=== PATIENT | male | born 1940 | race Caucasian/White ===

== ENCOUNTER 2024-11-02 14:03 | Emergency (ER) | payer MEDICARE ==
[~2024-11-02] VITALS: Ht 177.8 cm; Wt 107.9 kg
[~2024-11-02 14:03] MED LIST: DOXY-224 PO
[2024-11-02 14:23] VITALS: BP 135/84; PULSE 63; RESP 18; O2SAT 97
[2024-11-02 16:05] LABS: BASOPHILS # (AUTO) 0.1 X10'3 (0-0.2); BASOPHILS % (AUTO) 0.5 % (0-1); EOSINOPHILS # (AUTO) 0.5 X10'3 (0-0.9); EOSINOPHILS % (AUTO) 5.3 % (0-6); HEMATOCRIT 40.6 % (42.0-52.0); HEMOGLOBIN 13.8 g/dl (14.0-17.9); LYMPHOCYTES # (AUTO) 2.3 X10'3 (1.1-4.8); MEAN CORPUSCULAR VOLUME 94.2 FL (78-98); MEAN PLATELET VOLUME 8.1 FL (7.4-10.4); MONOCYTES % (AUTO) 10.5 % (2-12); NEUTROPHILS # (AUTO) 5.7 X10'3 (1.8-7.7); NEUTROPHILS % (AUTO) 59.7 % (42-75); PLATELET COUNT 262 X10'3 (140-440); RED BLOOD COUNT 4.31 X10'6 (4.70-6.10); RED CELL DISTRIBUTION WIDTH 13.1 % (11.5-14.5); WHITE BLOOD COUNT 9.6 X10'3 (4.5-11.0)
[2024-11-02 16:29] LABS: APTT 29 SECONDS (22-32); PROTHROMBIN TIME 10.9 SECONDS (9.0-12.0)
[2024-11-02 16:34] LABS: ALANINE AMINOTRANSFERASE 23 U/L (12-78); ALBUMIN 3.6 G/DL (3.4-5.0); ALKALINE PHOSPHATASE 77 IU/L (46-116); ANION GAP 9 (8-16); ASPARTATE AMINO TRANSFERASE 26 U/L (10-37); BILIRUBIN,TOTAL 2.2 MG/DL (0.1-1.0); BLOOD UREA NITROGEN 14 MG/DL (7-18); BUN/CREATININE RATIO 18.7 (10.0-20.0); CHLORIDE 101 MMOL/L (99-107); CREATININE 0.75 MG/DL (0.60-1.10); GLUCOSE 99 MG/DL (70-104); POTASSIUM 3.7 MMOL/L (3.5-5.1); SODIUM 136 MMOL/L (135-145); TOTAL CARBON DIOXIDE 26.5 MMOL/L (24-32); TOTAL PROTEIN 7.2 G/DL (6.4-8.2); eCRCL 78 ML/MIN; eGFR > 90 ML/MIN
[2024-11-02] MEDS ORDERED: LIDOcaine 1% 30ml preserv. free vial IJ STA (16:48)
[2024-11-02] MEDS ORDERED: methylPREDNISolone acetate 80mg/ml inj**IM only IM ONE (16:50)
[2024-11-02] MEDS ORDERED: methylPREDNISolone acetate 80mg/ml inj**IM only IJ ONE (17:00)
[2024-11-02 18:21] VITALS: TEMP 98.4
== END 2024-11-02 18:23 | disposition home or self-care (01) ==
LOC: ER 14:04
DX: I65.23 Occlusion and stenosis of bilateral carotid arteries (principal); Z88.2 Allergy status to sulfonamides; Z88.8 Allergy status to other drugs, medicaments and biological substances
CPT/HCPCS: 36415; 80053; 85025; 85610; 85730; 93005; 93880; 99284

== ENCOUNTER 2025-07-09 06:36 | Day surgery (SDC) | payer MEDICARE ==
[2025-07-09] VITALS (10 sets, daily range): BP systolic 140–172; BP diastolic 72–86; PULSE 55–63; RESP 14–16; TEMP 97.9; O2SAT 94–97
[~2025-07-09] VITALS: Ht 177.8 cm; Wt 104.1 kg
--- NOTE | 2025-07-09 07:19 | ELECTROCARDIOGRAPH REPORT ---
[facility] Test Date: 2025-07-09 Test Time: 07:16:01 Pat Name: ALANA PINA Department: [facility] Patient ID: [id number] Room: Gender: M [employer] Operator: SEAN : 1940 Requested By: SUSAN PARISH Order Number: [id number] Reading MD: Dr. Carey Silver Measurements Intervals [place] Rate: 57 P: 34 MI: 152 QRS: 8 QRSD: 114 T: 99 QT: 440 QTc: 429 Interpretive Statements Sinus rhythm Left ventricular hypertrophy Borderline T abnormalities, lateral leads ST elevation, consider anterior injury Electronically Signed On 07-10-2025 6:59:[address] Carey Silver Please click the below link to view image of tracing.
[2025-07-09 07:23] LABS: MEAN PLATELET VOLUME 7.9 FL (7.4-10.4); RED CELL DISTRIBUTION WIDTH 13.0 % (11.5-14.5)
[2025-07-09 07:31] LABS: CREATININE 0.77 MG/DL (0.60-1.10); TOTAL CARBON DIOXIDE 28.4 MMOL/L (24-32); eCRCL 76 ML/MIN; eGFR > 90 ML/MIN
[2025-07-09 07:33] LABS: INR 1.0 INR
[2025-07-09] MEDS ORDERED: MULT-1085 PO (07:48)
[2025-07-09] MEDS ORDERED: [UNRECOGNIZED DRUG - OTHER] (07:48)
[2025-07-09] MEDS ORDERED: CHOL10CA2 PO (07:48)
[2025-07-09] MEDS ORDERED: [UNRECOGNIZED DRUG - OTHER] (07:48)
[2025-07-09] MEDS ORDERED: [UNRECOGNIZED DRUG - OTHER] (07:48)
[2025-07-09] MEDS ORDERED: OMEG1CAP61 PO (07:48)
[2025-07-09] MEDS ORDERED: CALC300T4 PO (07:48)
[2025-07-09] MEDS: sodium bicarbonate 1meq/ml syr 150 ML in dextrose 5%-water 1,000 ML IV ONE (07:56)
[2025-07-09] MEDS ORDERED: LIDOcaine 1% (10mg/ml) 2ml vial ONE (08:58)
[2025-07-09] MEDS ORDERED: midazolam 1 mg/ML 2ml injection ONE ×2 (08:58→09:17)
[2025-07-09] MEDS ORDERED: fentaNYL/PF 50MCG/1 ML 2ML syringe ONE (08:58)
[2025-07-09] MEDS ORDERED: iohexol 350 MG/ML 50ML vial IV ONE (08:59)
[2025-07-09] MEDS ORDERED: verapamil 2.5 mg/ml inj IV ONE (08:59)
[2025-07-09] MEDS ORDERED: heparin 1,000unit/ml 10ml vial 10 ML ONE (08:59)
[2025-07-09] MEDS ORDERED: nitroGLYCERIN 500mcg/5mL D5W 5 ML IV ONE (09:00)
[2025-07-09] MEDS ORDERED: LIDOcaine 1% 30ml preserv. free vial ONE (09:17)
[2025-07-09] MEDS ORDERED: LIDOcaine 1% W/epiNEPHrine 1:100,000 20ml vial ONE (10:42)
--- NOTE | 2025-07-09 11:34 | CARDIOLOGY REPORT ---
DATE OF SERVICE: 07/09/2025 DICTATING PHYSICIAN: SUSAN PARISH DO CARDIAC CATHETERIZATION REPORT DATE OF SERVICE: 07/09/2025 REFERRING PHYSICIAN: Jona Haile MD CLINICAL HISTORY: This 84-year-old man has known severe aortic stenosis and is being considered for TAVR. He has had a pharmacologic stress test showing multiple areas of inadequate perfusion; however, he is not currently experiencing chest pain. He has also had carotid ultrasonography with findings of at least moderate stenoses in both internal carotid arteries. PROCEDURES PERFORMED: * Right heart catheterization. * Left heart catheterization. * Left ventriculography. * Selective coronary arteriography. * Selective opacification of the left and right carotid arteries. * Percutaneous arteriotomy closure (Perclose). * 60 minutes of conscious sedation supervision. DESCRIPTION OF THE PROCEDURE: The patient was sedated with fentanyl and Versed. He was then prepared and draped in the usual manner. The right inguinal area was infiltrated with 1% lidocaine. Using a Seldinger technique, a 6-[place] sheath was placed in the common femoral vein and a 7-[place]izen [place] sheath was placed in the common femoral artery. 3000 units of heparin were then given. Right heart catheterization was performed using a 6-[place] Zoe-Theodora catheter. Cardiac output was determined using a thermodilution technique. Left heart catheterization and left ventriculography were performed using a 6-[place] double lumen [place] catheter. Simultaneous recordings were obtained in both the aorta and left ventricle. Coronary arteriography was performed using 6-[place]izen [place] #4 left and right Naveed catheters. Bilateral selective carotid arteriography was performed using the #4 right Naveed catheter. The arterial puncture site was successfully perclosed. Direct pressure was applied to the venous access site. RESULTS: HEMODYNAMIC DATA: The mean right atrial pressure was 13 mmHg. Right ventricular pressure was 46/18 mmHg. Mean pulmonary capillary wedge pressure was 23 mmHg. Pulmonary arterial pressure was 42/18 mmHg. Left ventricular end diastolic pressure was 23 mmHg. There was a 50 mm peak gradient across the aortic valve. The cardiac outputs were 4.5, 4.6, and 4.8 L/min. Using the cardiac outputs and the short-form calculation, the aortic valve area was estimated at 0.65 cm2. LEFT VENTRICULOGRAM: The left ventriculogram was technically satisfactory. There was marked calcification of the aortic valve. The ejection fraction was estimated at 60-65%. There was calcification proximally within the left coronary artery. CORONARY ARTERIOGRAPHY: The coronary arteriograms were technically satisfactory. The patient had a codominant system. LEFT MAIN CORONARY ARTERY: The left main was a large vessel bifurcating into left anterior descending and circumflex coronary arteries. The distal left main appeared to be narrowed by 40% to 50%. LEFT ANTERIOR DESCENDING CORONARY ARTERY: The LAD was a medium-sized main stem vessel. There was a tiny very proximal first diagonal, a medium-sized bifurcated second diagonal, which also took its origin proximally. There were 3 additional diagonal branches taking the origin from the mid and distal LAD. There were no obstructive lesions in any of the diagonal branches, but there was an approximate 50% stenosis in 2 locations within the distal LAD. CIRCUMFLEX CORONARY ARTERY: The circumflex was a large main stem vessel. There was a medium-sized first posterolateral branch and a small to medium-sized second posterolateral branch. The origin of the first posterolateral branch contained a long 90% stenosis and the origin of the second posterolateral was narrowed by about 80% to 90% stenosis at its origin. RIGHT CORONARY ARTERY: The right coronary is a small caliber vessel giving off only a posterior descending branch. Proximally and in the mid vessel, there were 90% and two 50% to 70% areas of stenosis. The posterior descending branch was a small caliber vessel wide moderate luminal irregularities. CAROTID ANGIOGRAPHY. The left common carotid was free of obstructive disease except for at the origin of the internal carotid where there was no more than and probably less than a 50% area of narrowing. The right common carotid was free of obstructive disease. As seen in 2 views, the proximal internal carotid appeared to be narrowed by at least 80%. CONCLUSIONS: 1. [id number] pulmonary hypertension. Pulmonary arterial pressure was 42/18 mmHg. 2. Cardiac output by thermodilution technique was easily reproducible and an average of 3 recordings was 4.63 L/min. 3. There was a 50 mm peak gradient across the aortic valve. The calculated aortic valve area was 0.65 cm2. 4. Left ventricular systolic function appeared to be normal. The estimated ejection fraction was 60% to 65%. 5. Obstructive coronary disease as follows: a. Two 50% areas of narrowing in the far distal right coronary and a very small caliber segment of the terminal mainstem left anterior descending. b. 90% first posterolateral and 80% to 90% narrowing at the origin of the second posterolateral. This is a bifurcation stenosis. There was also 50% to 70% proximal and two 50% areas of narrowing in the main stem right coronary. 6. Individual selective angiography of both internal carotid arteries revealed no more than a 50% smooth-appearing narrowing in the LEFT internal carotid but, as seen in 2 views, there is an estimated 70% to 80% stenosis near the origin of the RIGHT internal carotid artery. RECOMMENDATIONS: 1. Ongoing medical therapy. I think this patient could go through with his TAVR with his current CAD and have PCI after. 2. Consideration of RIGHT ICA CEA after the aortic valve is addressed, SUSAN PARISH DO TID: [id number] RECEIPT: [id number] GEN PRICE
[2025-07-09] MEDS ORDERED: OXAZEpam 15mg capsule PO PRN (11:40)
[2025-07-09] MEDS ORDERED: HYDROcodone/acetaminophen 10/325mg tab PO PRN (11:40)
[2025-07-09] MEDS ORDERED: HYDROcodone/acetaminophen 5mg/325mg tablet PO PRN (11:40)
[2025-07-09] MEDS ORDERED: ondansetron/PF 4mg/2ml inj IV PRN (11:40)
[2025-07-09] MEDS ORDERED: sodium bicarbonate 1meq/ml syr 150 ML in dextrose 5%-water 1,000 ML IV ONE (11:40)
== END 2025-07-09 13:55 | disposition home or self-care (01) ==
LOC: SSTAY O 06:36
PROVIDERS: ATTEND Internal Medicine Cardiovascular Disease
DX: I35.0 Nonrheumatic aortic (valve) stenosis (principal); I25.10 Atherosclerotic heart disease of native coronary artery without angina pectoris; I65.23 Occlusion and stenosis of bilateral carotid arteries; I10 Essential (primary) hypertension; E78.5 Hyperlipidemia, unspecified; Z86.73 Personal history of transient ischemic attack (TIA), and cerebral infarction without residual deficits
CPT/HCPCS: 36415; 80048; 83735; 85025; 85610; 93005; 93460; 99152; 99153; A6258; A6402; C1725; C1751; C1760; C1769; C1894; J1644; J2003; J2250; J3010; J3490; J7030; J7070; Q0163; Q9967; Z7610; 36222; 36223; A6449

== ENCOUNTER 2025-08-21 09:13 | Outpatient (CLI) | payer MEDICARE ==
[~2025-08-21 09:13] MED LIST changes: +CALC300T4 PO; +CHOL10CA2 PO; -DOXY-224 PO; +IODIXANOL 320 MG/ML INFUS..BTL 100ML IV ONE; +MULT-1085 PO; +OMEG1CAP61 PO; +[UNRECOGNIZED DRUG - OTHER]; +[UNRECOGNIZED DRUG - OTHER]; +[UNRECOGNIZED DRUG - OTHER]
[2025-08-21 09:44] LABS: MEAN PLATELET VOLUME 7.5 FL (7.4-10.4); RED CELL DISTRIBUTION WIDTH 12.9 % (11.5-14.5)
[2025-08-21 09:56] LABS: APTT 29 SECONDS (22-32); INR 1.0 INR
--- NOTE | 2025-08-21 10:01 | RADIOLOGY REPORT ---
CHEST RADIOGRAPH Indication: TAVR; SOB Technique: Frontal and lateral view of the chest was obtained Comparison: None FINDINGS: Lines and Tubes: None Lungs: Increased interstitial prominence. This may represent pulmonary vascular congestion and/or viral pneumonia. Pleura: No effusion.No pneumothorax. Cardiomediastinal contours: Post TAVR. Borderline cardiomegaly. Bones: Unremarkable IMPRESSION: Increased interstitial prominence. This may represent pulmonary vascular congestion and/or viral pneumonia.
[2025-08-21 10:12] LABS: CREATININE 0.79 MG/DL (0.60-1.10); PRO BRAIN NATRIURETIC PEPTIDE 547 PG/ML (0-450); TOTAL CARBON DIOXIDE 28.5 MMOL/L (24-32); eGFR > 90 ML/MIN
--- NOTE | 2025-08-22 17:15 | CARDIOLOGY REPORT ---
APPROVED REPORT EXAM: Limited 2D, Doppler, and color-flow Echocardiogram. Patient Location: OUT-PATIENT Blood Pressure: 115/57 mmHg Heart Rate: 54 bpm Rhythm: SINUS Indications AORTIC STENOSIS [place] Worker: Trace Haile MD Previous echo: 07/01/23 [facility] (EF NR, STEVIE 0.8 cmsq, pkV 4.06 m/s, pk / mn grad 66 / 42 mmHg) 2D Dimensions LVOT Diameter 1.88 (1.8-2.4cm) M-Mode Dimensions Left Atrium(MM) 5.17 (2.5-4.0cm) Aortic Root 3.49 (2.2-3.7cm) Aortic Cusp Exc 0.99 (1.5-2.0cm) Aortic Valve AoV Peak Lai. 551.0 cm/s AoV VTI 134.2 cm AO Peak GR. 121.0 mmHg AO Mean GR. 68 mmHg LVOT VTI 28.62 cm LVOT Peak Lai. 103.8 cm/s STEVIE (VMAX) 0.55 cm2 STEVIE (VTI) 0.59 cm2 Mitral Valve MV PHT 68 ms MVA (PHT) 3.21 cm2 LEFT VENTRICLE Normal LV size and function. Moderate concentric hypertrophy. LVEF is 55-60%. RIGHT VENTRICLE RV size and function appear normal. ATRIA LA appears at least moderately dilated. RA appears normal in size. AORTIC VALVE Trileaflet AV appears severely calcified with significant stenosis demonstrated by reduced excursion and increased transvalvular and ascending aorta turbulance. STEVIE: 0.55 cmsq; Pkv: 5.51 m/sec; Gradients: 121 / 68 mmHG. Trace insufficiency. MITRAL VALVE Moderate MV annular calcification without stenosis. Trace regurgitation. TRICUSPID VALVE TV appears structurally normal with trace regurgitation. PULMONIC VALVE Normal PV without gross stenosis, physiologic insufficiency. GREAT VESSELS Aortic root is normal in size. PERICARDIUM Normal pericardium. No effusion. Other Information Study Quality: Adequate Conclusion Normal LV size and function. Moderate concentric hypertrophy. LVEF is 55-60%. RV size and function appear normal. LA appears at least moderately dilated. RA appears normal in size. Trileaflet AV appears severely calcified with significant stenosis demonstrated by reduced excursion and increased transvalvular and ascending aorta turbulance. STEVIE: 0.55 cmsq; Pkv: 5.51 m/sec; Gradients: 121 / 68 mmHG. Trace insufficiency. Moderate MV annular calcification without stenosis. Trace regurgitation. TV appears structurally normal with trace regurgitation. Normal pericardium. No effusion.
== END 2025-08-21 23:59 | disposition home or self-care (01) ==
LOC: RAD 09:13
PROVIDERS: ATTEND Internal Medicine Cardiovascular Disease
DX: J84.10 Pulmonary fibrosis, unspecified (principal); I35.0 Nonrheumatic aortic (valve) stenosis; R06.02 Shortness of breath; I65.29 Occlusion and stenosis of unspecified carotid artery; R59.0 Localized enlarged lymph nodes; M47.814 Spondylosis without myelopathy or radiculopathy, thoracic region
CPT/HCPCS: 36415; 71046; 71275; 74174; 75572; 80053; 83880; 85025; 85610; 85730; 93308; Q9967